=== PATIENT | male | born 1935 | race Caucasian/White ===

== ENCOUNTER → 2017-04-15 | Outpatient (CLI) | payer MEDICARE ==
[~2017-04-15] MED LIST: APIX5TAB PO; ASPI-496 PO; ASPI-621 PO; ATOR20TA9 PO; CARV12.52 PO; CARV6.252 PO; HYDR25TA6 PO; LISI-167 PO; LISI5TAB7 PO; SIMV5TAB5 PO; TIZA4CAP PO
[2017-04-15 15:49] LABS: BLOOD UREA NITROGEN 8 mg/dL (7-18)
== END | disposition home or self-care (01) ==
LOC: CFH 14:44
PROVIDERS: ATTEND Internal Medicine Cardiovascular Disease
DX: C93.12 Chronic myelomonocytic leukemia, in relapse (principal); I35.1 Nonrheumatic aortic (valve) insufficiency; E78.2 Mixed hyperlipidemia; I10 Essential (primary) hypertension; I48.0 Paroxysmal atrial fibrillation
CPT/HCPCS: 36415; 80048

== ENCOUNTER → 2017-09-25 | Outpatient (CLI) | payer OTHER, MEDICAID | END | disposition home or self-care (01) | LOC: CFH 09:38 | PROVIDERS: ATTEND Nurse Practitioner Family | DX: I10 Essential (primary) hypertension (principal); I48.0 Paroxysmal atrial fibrillation | CPT/HCPCS: 71046 ==

== ENCOUNTER 2017-09-30 09:14 | Day surgery (SDC) | payer OTHER, MEDICAID ==
[~2017-09-30] VITALS: Ht 180.3 cm; Wt 84.1 kg
[2017-09-30 09:45] VITALS: BP 156/81
[2017-09-30] MEDS ORDERED: IRBE300T16 PO (09:57)
[2017-09-30] MEDS ORDERED: OMEP-110 PO (09:57)
[2017-09-30] MEDS ORDERED: AMLO5TAB2 PO (09:57)
[2017-09-30] MEDS ORDERED: RIVA20TA PO (09:57)
[2017-09-30] MEDS ORDERED: CYCL-259 PO (09:57)
[2017-09-30] MEDS ORDERED: CHOL100011 PO (09:57)
[2017-09-30 10:06] LABS: MEAN CORPUSCULAR HEMOGLOBIN 30.1 pg (27.5-34.5); MEAN CORPUSCULAR HGB CONC 32.6 g/dL (33.2-36.2); MEAN CORPUSCULAR VOLUME 92.5 fL (81-97); MEAN PLATELET VOLUME 9.7 fL (7.4-10.4); PLATELET COUNT 158 x10^3/uL (130-400)
[2017-09-30 10:16] LABS: ANION GAP 8 mmol/L (5-15); CHLORIDE 109 mmol/L (98-107); CREATININE 1.14 mg/dL (0.7-1.3)
[2017-09-30 10:28] LABS: BASOPHILS # (AUTO) 0.08 x10^3/uL (0-0.1); BASOPHILS % (AUTO) 0 % (0-1); EOSINOPHILS # (AUTO) 0.24 x10^3/uL (0-0.4); EOSINOPHILS % (AUTO) 1 % (1-7); LYMPHOCYTES # (AUTO) 14.34 x10^3/uL (1-3.4); LYMPHOCYTES % (AUTO) 73 % (22-44); MD SCAN; MONOCYTES # (AUTO) 0.57 x10^3/uL (0.2-0.8); MONOCYTES % (AUTO) 3 % (2-9); NEUTROPHILS # (AUTO) 4.43 x10^3/uL (1.8-6.8); NEUTROPHILS % (AUTO) 23 % (42-75)
[2017-09-30] MEDS ORDERED: PROPOFOL 10 MG/ML, 20ML ONE (13:35)
== END 2017-09-30 17:00 ==
LOC: CACL 09:14
PROVIDERS: ATTEND Internal Medicine Cardiovascular Disease
DX: I48.0 Paroxysmal atrial fibrillation (principal); I10 Essential (primary) hypertension; E78.5 Hyperlipidemia, unspecified; K21.9 Gastro-esophageal reflux disease without esophagitis; M54.9 Dorsalgia, unspecified; G89.29 Other chronic pain; C91.10 Chronic lymphocytic leukemia of B-cell type not having achieved remission; Z79.899 Other long term (current) drug therapy; Z79.01 Long term (current) use of anticoagulants
CPT/HCPCS: 36415; 80048; 85025; 92960; 93005; J2704

== ENCOUNTER → 2017-12-14 | Outpatient (CLI) | payer OTHER, MEDICAID ==
[~2017-12-14] MED LIST changes: +AMLO5TAB2 PO; +CHOL100011 PO; +CYCL-259 PO; +IRBE300T16 PO; +OMEP-110 PO; +RIVA20TA PO
== END ==
LOC: CVU 15:20
PROVIDERS: ATTEND Internal Medicine Cardiovascular Disease
DX: I08.3 Combined rheumatic disorders of mitral, aortic and tricuspid valves (principal); I10 Essential (primary) hypertension; Z85.6 Personal history of leukemia
CPT/HCPCS: 93306